=== PATIENT | female | born 1980 | race Caucasian/White ===

== ENCOUNTER 2024-09-17 14:04 | Emergency (ER) | payer OTHER ==
[~2024-09-17] VITALS: Ht 160 cm; Wt 68.0 kg
[2024-09-17 14:08] VITALS: O2SAT 99
[2024-09-17] MEDS ORDERED: CYCL10TA21 MT (17:04)
[2024-09-17] MEDS ORDERED: IBUP-2029 MT (17:04)
[2024-09-17] MEDS ORDERED: LIDO-53 TP (17:04)
[2024-09-17] MEDS: ACETAMINOPHEN 325MG TABLET PO ONE (17:19)
[2024-09-17] MEDS: KETOROLAC 15MG/ML VIAL IM ONE (17:19)
[2024-09-17 17:36] VITALS: BP 124/88; PULSE 74; RESP 18; TEMP 36.7; O2SAT 100
== END 2024-09-17 17:36 | disposition home or self-care (01) ==
LOC: ER 14:24
DX: S50.812A Abrasion of left forearm, initial encounter (principal); M54.2 Cervicalgia; Z79.899 Other long term (current) drug therapy; V89.2XXA Person injured in unspecified motor-vehicle accident, traffic, initial encounter; Y93.89 Activity, other specified; Y92.89 Other specified places as the place of occurrence of the external cause; Y99.8 Other external cause status
CPT/HCPCS: 99283; 71045; 81025; 96372; J1885